=== PATIENT | female | born 1980 ===

== ENCOUNTER 2018-04-20 10:31 | Emergency (ER) | payer OTHER ==
[~2018-04-20] VITALS: Ht 157.5 cm; Wt 49.9 kg
[~2018-04-20 10:31] MED LIST: ALBIPROI INH; AMOCLA875 PO; AMOX500; CEPH500 PO; CRUTCH4 USE; CYAN1000 PO; DOXY100 PO; FLUC150A PO; HYDACE5 PO; HYDACE5325 PO; HYDGUAL120 PO; IBUP800 PO; LEVFLO500 PO; LORA1 PO; MEDR10 PO; MEDR5 PO; METFORMIN; METR500 PO; NAPR500 PO; Norco 5-325 Ta1 EACH PO; OXYACE5T PO; PENVK500 PO; PHENA200 PO; PROBIOTIC1 EAC1 PO; PROCODE120 PO; PROM25 PO; Percocet 5-3251 EACH PO; RXHYDACE PO; RXLORA1 PO; RXPROCODSY PO; Robaxin500 MG PO; SULTRIDS PO; Verotin-Gr Cap1 EACH PO
[2018-04-20] MEDS ORDERED: Cheratussin AC118 ML PO (11:08)
[2018-04-20] MEDS ORDERED: SINUS 12 HOUR120 MG PO (11:08)
[2018-04-21] MEDS ORDERED: Augmentin 875-1 EACH PO (21:18)
[2018-04-21] MEDS ORDERED: Norco 5-325 Ta1 EACH PO (21:18)
[2018-04-21] MEDS ORDERED: Diflucan100 MG PO (21:18)
== END 2018-04-20 11:15 | disposition home or self-care (01) ==
LOC: ER 10:31
DX: R05 Cough (principal); Z88.1 Allergy status to other antibiotic agents; Z79.899 Other long term (current) drug therapy; E03.9 Hypothyroidism, unspecified; Z87.891 Personal history of nicotine dependence
CPT/HCPCS: 71046; 99283-25

== ENCOUNTER 2018-04-21 16:53 | Emergency (ER) | payer OTHER ==
[~2018-04-21] VITALS: Ht 157.5 cm; Wt 72.1 kg
[~2018-04-21 16:53] MED LIST changes: +Cheratussin AC118 ML PO; +SINUS 12 HOUR120 MG PO
[2018-04-21 17:45] LABS: BASOPHILS ABSOLUTE AUTO 0.03 K/mm3 (0.00-0.23); BASOPHILS PERCENT AUTO 0 % (0-2); EOSINOPHILS ABSOLUTE AUTO 0.02 K/mm3 (0.00-0.68); EOSINOPHILS PERCENT AUTO 0 % (0-6); Hemoglobin 14.2 g/dL (11.5-16.0); IMMATURE GRAN ABSOLUTE AUTO 0.02 K/mm3 (0.00-0.10); IMMATURE GRAN PERCENT AUTO 0 % (0-1); LYMPHOCYTES ABSOLUTE AUTO 2.36 K/mm3 (0.84-5.20); LYMPHOCYTES PERCENT AUTO 23 % (21-46); MONOCYTES ABSOLUTE AUTO 0.37 K/mm3 (0.16-1.47); MONOCYTES PERCENT AUTO 4 % (4-13); Mean Corpuscular Volume 91 fL (80-100); Mean Platelet Volume 9.9 fL (9.1-12.4); NEUTROPHILS ABSOLUTE AUTO 7.69 K/mm3 (1.96-9.15); NEUTROPHILS PERCENT AUTO 73 % (41-73); Platelet Count 299 K/mm3 (150-400); RDW Standard Deviation 40.4 fL (35.1-46.3); Red Blood Cell Count 4.73 M/mm3 (3.80-5.20); White Blood Cell Count 10.49 K/mm3 (4.00-11.30)
[2018-04-21 18:11] LABS: Alanine Aminotransfer (ALT/SGP 192 U/L (12-78); Albumin, Blood 3.9 g/dL (3.4-5.0); Albumin/Globulin Ratio 0.8 (0.8-1.8); Alk Phos 224 U/L (50-136); Anion Gap 7 mmol/L (6-16); Aspartate Aminotrans (AST/SGOT 144 U/L (12-37); Bilirubin, Total 0.3 mg/dL (0.1-1.0); Blood Urea Nitrogen 5 mg/dL (8-24); Bun/Creatinine Ratio 8.7 (12.0-20.0); CO2, Blood 27 mmol/L (21-32); Calcium, Blood 9.2 mg/dL (8.5-10.1); Chloride, Blood 103 mmol/L (98-108); Creatinine, Blood 0.57 mg/dL (0.40-1.00); Globulin, Blood 4.6 g/dL (2.2-4.0); Glomerular Filtration Rate >60 (60-); Glucose, Blood 115 mg/dL (70-99); Potassium, Blood 3.6 mmol/L (3.5-5.5); Sodium, Blood 137 mmol/L (136-145); Total Protein, Blood 8.5 g/dL (6.4-8.2)
[2018-04-21 18:40] LABS: Influenza A Negative (NEGATIVE); Influenza B Negative (NEGATIVE)
[2018-04-21] MEDS ORDERED: Augmentin 875-1 EACH PO (21:18)
[2018-04-21] MEDS ORDERED: Diflucan100 MG PO (21:18)
[2018-04-21] MEDS ORDERED: Norco 5-325 Ta1 EACH PO (21:18)
== END 2018-04-21 22:12 | disposition home or self-care (01) ==
LOC: ER 16:53
PROVIDERS: Emergency Medicine; Physician Assistant
DX: J32.0 Chronic maxillary sinusitis (principal); F17.210 Nicotine dependence, cigarettes, uncomplicated
CPT/HCPCS: 36415; 80053; 85025; 87804; 99283

== ENCOUNTER → 2019-11-18 | Outpatient (CLI) | payer OTHER ==
[~2019-11-18] MED LIST changes: +Augmentin 875-1 EACH PO; +CITA20 PO; +CYCL10 PO; +Cyclobenzaprine5 MG PO; +Diflucan100 MG PO; +IBUP400 PO
== END | disposition home or self-care (01) ==
LOC: LAB 15:55 → LAB SHORT 15:55
DX: L02.413 Cutaneous abscess of right upper limb (principal)
CPT/HCPCS: 87070; 87075; 87205

== ENCOUNTER 2019-11-23 14:24 | Emergency (ER) | payer OTHER ==
[~2019-11-23] VITALS: Ht 157.5 cm; Wt 60.3 kg
[~2019-11-23 14:24] MED LIST changes: -Cyclobenzaprine5 MG PO; -IBUP400 PO
[2019-11-23 16:24] LABS: BASOPHILS ABSOLUTE AUTO 0.04 K/mm3 (0.00-0.23); BASOPHILS PERCENT AUTO 1 % (0-2); EOSINOPHILS ABSOLUTE AUTO 0.03 K/mm3 (0.00-0.68); EOSINOPHILS PERCENT AUTO 0 % (0-6); Hematocrit 46.9 % (33.0-51.0); Hemoglobin 15.3 g/dL (11.5-16.0); IMMATURE GRAN ABSOLUTE AUTO 0.02 K/mm3 (0.00-0.10); IMMATURE GRAN PERCENT AUTO 0 % (0-1); LYMPHOCYTES PERCENT AUTO 32 % (21-46); MONOCYTES ABSOLUTE AUTO 0.32 K/mm3 (0.16-1.47); MONOCYTES PERCENT AUTO 4 % (4-13); Mean Corpuscular HGB 29.9 pg (26.0-34.0); Mean Corpuscular HGB Conc 32.6 g/dL (31.5-36.5); Mean Corpuscular Volume 92 fL (80-100); Mean Platelet Volume 9.7 fL (9.1-12.4); NEUTROPHILS ABSOLUTE AUTO 5.52 K/mm3 (1.96-9.15); NEUTROPHILS PERCENT AUTO 63 % (41-73); Platelet Count 305 K/mm3 (150-400); RDW Coefficient Variation 12.2 % (11.7-14.2); RDW Standard Deviation 41.5 fL (35.1-46.3); Red Blood Cell Count 5.11 M/mm3 (3.80-5.20); White Blood Cell Count 8.73 K/mm3 (4.00-11.30)
[2019-11-23 16:41] LABS: Alanine Aminotransfer (ALT/SGP 25 U/L (12-78); Albumin, Blood 4.4 g/dL (3.4-5.0); Albumin/Globulin Ratio 1.1 (0.8-1.8); Alk Phos 77 U/L (50-136); Anion Gap 3 mmol/L (6-16); Aspartate Aminotrans (AST/SGOT 20 U/L (12-37); Bilirubin, Total 0.3 mg/dL (0.1-1.0); Blood Urea Nitrogen 5 mg/dL (8-24); Bun/Creatinine Ratio 7.6 (12.0-20.0); CO2, Blood 30 mmol/L (21-32); Calcium, Blood 9.9 mg/dL (8.5-10.1); Chloride, Blood 107 mmol/L (98-108); Creatinine, Blood 0.66 mg/dL (0.40-1.00); Globulin, Blood 3.9 g/dL (2.2-4.0); Glomerular Filtration Rate >60 (60-); Glucose, Blood 95 mg/dL (70-99); Potassium, Blood 3.7 mmol/L (3.5-5.5); Sodium, Blood 140 mmol/L (136-145); Total Protein, Blood 8.3 g/dL (6.4-8.2)
[2019-11-23] MEDS ORDERED: IBUP400 PO (17:38)
[2019-11-23] MEDS ORDERED: Cyclobenzaprine5 MG PO (17:38)
== END 2019-11-23 17:56 | disposition home or self-care (01) ==
LOC: ER 14:24
PROVIDERS: Emergency Medicine
DX: M25.512 Pain in left shoulder (principal); Z88.1 Allergy status to other antibiotic agents; E03.9 Hypothyroidism, unspecified; Z79.899 Other long term (current) drug therapy; Z87.891 Personal history of nicotine dependence
CPT/HCPCS: 36415; 71250; 80053; 85025; 99284-25